=== PATIENT | male | born 1935 | race Caucasian/White ===

== ENCOUNTER → 2017-11-20 | Outpatient (CLI) | payer MEDICARE, OTHER ==
[~2017-11-20] MED LIST: IOHEXOL 350 MG/ML 100 ML (OMNIPAQUE 350) VIAL IV ONE; NS 100 ML (IVPB) BAG IV ONE
--- NOTE | 2017-11-20 10:10 | Diagnostic Imaging Report ---
PROCEDURE: CT chest with contrast only. TECHNIQUE: Multiple contiguous axial images were obtained through the chest after administration of intravenous contrast. INDICATION: Lung mass. 75 mL of Omnipaque 350 is administered intravenously. FINDINGS: There is patchy consolidation seen in the lower lobes and in the left upper lobe. In the medial aspect of the consolidation along the superior segment of the left lower lobe, a 2.5 cm underlying nodule is suggested. There is background severe emphysema and areas of scarring with bronchiectasis noted particularly prominent in the left lower lobe. There is small amount of fluid seen in the left major fissure. The thoracic aorta is normal in caliber. There is lymphadenopathy in the mediastinum with 1.6 cm enlarged precarinal node and infracarinal lymph node mass measuring 3.5 x 1.6 cm. There is a small subpulmonic effusion on the left and small pleural effusion on the right side. The heart size is normal. No pericardial effusion. There is ectasia of the descending aorta and in the upper abdominal aorta. IMPRESSION: 1. Pulmonary areas of consolidation mostly in the left lower lobe are probably related to pneumonia. The medial aspect of the consolidation demonstrates a 2.5 cm region concerning for a possibly neoplastic or infectious nodule. Followup study in 6 weeks is suggested to reevaluate after resolution of the pneumonia. 2. Prominent mediastinal lymphadenopathy. 3. Small pleural effusions. 4. Severe emphysema. Report was faxed to office of Sahara Conde by ana at 10:12 am. Dictated by: Dictated on workstation # [id number]
== END ==
LOC: RAD 08:10
PROVIDERS: ATTEND Family Medicine
DX: R91.8 Other nonspecific abnormal finding of lung field (principal); R59.0 Localized enlarged lymph nodes; J90 Pleural effusion, not elsewhere classified; J43.9 Emphysema, unspecified
CPT/HCPCS: 71260

== ENCOUNTER → 2017-12-25 | Outpatient (CLI) | payer MEDICARE, OTHER ==
[~2017-12-25] MED LIST changes: +CATHETER FLUSH 10 ML SYR IV PRN
--- NOTE | 2017-12-25 11:08 | Diagnostic Imaging Report ---
PROCEDURE: CT chest with contrast only. TECHNIQUE: Multiple contiguous axial images were obtained through the chest after administration of intravenous contrast. INDICATION: Followup lung mass. COMPARISON: Comparison is made with prior study from 11/20/2017. FINDINGS: No axillary lymphadenopathy is detected. Mediastinal nodes appear to be decreased in size when compared with prior. A right-sided precarinal node measures approximately 14 mm short axis compared with 16 mm. Lymph node on the left in the region of the AP window measures 11 mm short axis compared with 14 mm. Subcarinal fullness also appears to be improved. The kristal are unremarkable. No pericardial effusion is identified. There is a small left pleural effusion. Severe emphysematous changes are again noted in both lungs. Small amount of fluid in the major fissure on the left is seen. There has been significant improvement in the infiltrate in the left upper lobe and bilateral lower lobes. Mild infiltrate does remain, greatest in the left lower lobe. Previously noted rounded masslike density concerning for neoplasm is again noted in the medial aspect of left lower lobe and appears increased in size. This measures approximately 3.2 cm AP x 3.6 cm transverse compared with 2.5 cm AP x 1.9 cm transverse on prior. No other masses are seen. Upper abdomen does show some bilateral mild adrenal nodularity, similar to prior. IMPRESSION: Significant improvement in bilateral pulmonary infiltrates consistent with improving pneumonia when compared with study from 11/20/2017. However, there is an enlarging mass in the left lower lobe medially which does show some central low density and may be partially necrotic concerning for neoplasm. Small left effusion persists as well. Dictated by: Dictated on workstation # [id number]
== END ==
LOC: RAD 09:48
PROVIDERS: ATTEND Family Medicine
DX: J90 Pleural effusion, not elsewhere classified (principal); R91.8 Other nonspecific abnormal finding of lung field
CPT/HCPCS: 71260

== ENCOUNTER 2018-02-03 02:05 | Emergency (ER) | payer MEDICARE, OTHER ==
[~2018-02-03] VITALS: Ht 172.7 cm; Wt 44.0 kg
[2018-02-03] MEDS ORDERED: RT-ALBUTEROL SULF 2.5 MG/3 ML PRE-MIX VIAL INH STA (02:15)
[2018-02-03] MEDS ORDERED: RT-ALBUTEROL/IPRATROPIUM 3 ML (DUONEB) VIAL INH ONE (02:15)
[2018-02-03] MEDS ORDERED: morphine INJ 10 MG/ML 1ML (SYR OR VIAL) IVP STA (02:20)
[2018-02-03 02:24] LABS: BASOPHILS % (AUTO) 0 % (0-10); EOSINOPHILS % (AUTO) 0 % (0-10); HEMATOCRIT 37 % (40-54); HEMOGLOBIN 12.2 G/DL (13.3-17.7); LYMPHOCYTES # (AUTO) 1.4 X 10^3 (1.0-4.0); LYMPHOCYTES % (AUTO) 8 % (12-44); MEAN CORPUSCULAR HEMOGLOBIN 31 PG (25-34); MEAN CORPUSCULAR HGB CONC 33 G/DL (32-36); MEAN CORPUSCULAR VOLUME 93 FL (80-99); MEAN PLATELET VOLUME 8.5 FL (7.4-10.4); MONOCYTES # (AUTO) 1.2 X 10^3 (0.0-1.0); MONOCYTES % (AUTO) 7 % (0-12); NEUTROPHILS % (AUTO) 85 % (42-75); PLATELET COUNT 404 10^3/uL (130-400); RED BLOOD COUNT 3.99 10^6/uL (4.35-5.85); RED CELL DISTRIBUTION WIDTH 13.3 % (10.0-14.5); WHITE BLOOD COUNT 18.8 10^3/uL (4.3-11.0)
[2018-02-03] MEDS ORDERED: LORazepam INJ 2 MG/ML (ATIVAN) VIAL IVP ONE (02:30)
[2018-02-03 02:34] LABS: PROTHROMBIN TIME PATIENT 13.4 SEC (12.2-14.7)
[2018-02-03 02:35] LABS: BAND NEUTROPHILS 1 %; BASOPHILS % (MANUAL) 0 %; EOSINOPHILS % (MANUAL) 1 %; LYMPHOCYTES % (MANUAL) 9 %; MONOCYTES % (MANUAL) 2 %; NEUTROPHILS % (MANUAL) 87 %
[2018-02-03 02:36] LABS: RBC MORPH NORMAL
[2018-02-03 02:45] LABS: ALANINE AMINOTRANSFERASE 8 U/L (0-55); ALBUMIN 3.9 GM/DL (3.2-4.5); ALKALINE PHOSPHATASE 117 U/L (40-136); BILIRUBIN,TOTAL 0.6 MG/DL (0.1-1.0); BUN/CREATININE RATIO 13; CALCIUM 9.7 MG/DL (8.5-10.1); CARBON DIOXIDE 24 MMOL/L (21-32); CHLORIDE 100 MMOL/L (98-107); CREATININE SERUM 0.95 MG/DL (0.60-1.30); GFR ESTIMATED > 60; GLUCOSE 147 MG/DL (70-105); POTASSIUM 4.3 MMOL/L (3.6-5.0); SODIUM 133 MMOL/L (135-145); TOTAL PROTEIN 7.7 GM/DL (6.4-8.2)
--- NOTE | 2018-02-03 03:36 | ED Respiratory ---
General Chief Complaint: Respiratory Problems Stated Complaint: SOA Nursing Triage Note: PT TO ED 3 PER W/C FOR C/O SOB ONSET THIS EVENING. PT REPORTS HE IS ON HOSPICE FOR A "MASS IN HIS LUNG", WAS UNABLE TO REACH HIS DAUGHTERS WHO HAVE ALL HIS INFORMATION CONCERNING HOSPICE, CALLED HIS SISTER ET BROTHER TO BRING HIM TO ED FOR SOB. PT DENIES N/V/D, DOES C/O SOB ET SOME CHEST PAIN Source: patient, EMS Exam Limitations: no limitations History of Present Illness Date Seen by Provider: Feb 03, 2018 Time Seen by Provider: 02:05 Initial Comments Here from home with report of shortness of air this evening. Patient states that he started getting short of breath and didn't know what to do. Reports trying to call different people and could not get a hold of anybody but finally got a hold of the sister who brought him here. Later in the evaluation was found out that the patient does have home health that comes by once a week but this was then found out to be hospice. He apparently has a cancer of the left lung. He denies fever, chills, vomiting but does report shortness of breath. He does have some upper abdominal pain with the difficulty breathing. Timing/Duration: this morning, getting worse Severity: moderate Prior Episodes/Possible Cause: occasional episodes Modifying Factors: Worse With Activity, Improves With Oxygen, Improves With Rest Associated Symptoms: cough, No fever/chills, No nasal congestion, No nasal drainage, shortness of breath, wheezing Allergies and Home Medications Allergies Coded Allergies: No Known Allergies (Verified Allergy, Unknown, 04/15/07) Patient Home Medication List Home Medication List Reviewed: Yes Constitutional: see HPI, No chills, No fever, weakness EENTM: no symptoms reported Respiratory: see HPI, dyspnea on exertion, short of breath, wheezing Cardiovascular: no symptoms reported Gastrointestinal: see HPI, No nausea, No vomiting Genitourinary: no symptoms reported Musculoskeletal: no symptoms reported Psychiatric/Neurological: Anxiety All Other Systems Reviewed Negative Unless Noted: Yes Past Loohydq-Lpzqgt-Rocjgy Hx Patient Social History Alcohol Use: Denies Use Recreational Drug Use: No Smoking Status: Current Everyday Smoker Type Used: Cigarettes Recent Foreign Travel: No Contact w/Someone Who Travel: No Recent Infectious Disease Expo: No Recent Hopitalizations: Yes Surgeries History of Surgeries: Yes (BLADDER TUMOR) Respiratory History of Respiratory Disorde: No Cardiovascular History of Cardiac Disorders: No Neurological History of Neurological Disord: No Reproductive System Hx Reproductive Disorders: No Gastrointestinal History of Gastrointestinal Di: Yes Musculoskeletal History of Musculoskeletal Dis: No Endocrine History of Endocrine Disorders: No Cancer History of Cancer: Yes Cancer: Lung Psychosocial History of Psychiatric Problem: No Blood Transfusions History of Blood Disorders: No Reviewed Nursing Assessment Reviewed/Agree w Nursing PMH: Yes Family Medical History Significant Family History: No Pertinent Family Hx Physical Exam Vital Signs Vital Signs - First Documented Capillary Refill : Less Than 3 Seconds General Appearance: WD/WN, mild distress HEENT: PERRL/EOMI, pharynx normal Neck: full range of motion, supple Respiratory: lungs clear, normal breath sounds Cardiovascular: regular rate, rhythm, no murmur Gastrointestinal: non tender, soft Extremities: non-tender, normal inspection Neurologic/Psychiatric: alert, oriented x 3 Skin: normal color, warm/dry Focused Exam Evaluation Lactate Level Laboratory Tests 02/03/18 02:13: Lactic Acid Level 1.39 Lactic Acid Level Laboratory Tests Test 02/03/18 02:13 Lactic Acid Level 1.39 MMOL/L (0.50-2.00) Progress/Results/Core Measures Suspected Sepsis Recent Fever Within 48 Hours: No Infection Criteria Present: None New/Unexplained Altered Menta: No Sepsis Screen: No Definite Risk Sepsis Diagnosis: SIRS Temperature:95.9 Pulse: 96 Respiratory Rate: 28 Laboratory Tests 02/03/18 02:13: White Blood Count 18.8H Blood Pressure 200 /94 Mean: 129 Laboratory Tests 02/03/18 02:13: Lactic Acid Level 1.39 Laboratory Tests 02/03/18 02:13: Creatinine 0.95, INR Comment 1.0, Platelet Count 404H, Total Bilirubin 0.6 Results/Orders Lab Results Laboratory Tests Test 02/03/18 02:13 Range/Units White Blood Count 18.8 H 4.3-11.0 10^3/uL Red Blood Count 3.99 L 4.35-5.85 10^6/uL Hemoglobin 12.2 L 13.3-17.7 G/DL Hematocrit 37 L 40-54 % Mean Corpuscular Volume 93 80-99 FL Mean Corpuscular Hemoglobin 31 25-34 PG Mean Corpuscular Hemoglobin Concent 33 32-36 G/DL Red Cell Distribution Width 13.3 10.0-14.5 % Platelet Count 404 H 130-400 10^3/uL Mean Platelet Volume 8.5 7.4-10.4 FL Neutrophils (%) (Auto) 85 H 42-75 % Lymphocytes (%) (Auto) 8 L 12-44 % Monocytes (%) (Auto) 7 0-12 % Eosinophils (%) (Auto) 0 0-10 % Basophils (%) (Auto) 0 0-10 % Neutrophils # (Auto) 16.0 H 1.8-7.8 X 10^3 Lymphocytes # (Auto) 1.4 1.0-4.0 X 10^3 Monocytes # (Auto) 1.2 H 0.0-1.0 X 10^3 Eosinophils # (Auto) 0.0 0.0-0.3 10^3/uL Basophils # (Auto) 0.0 0.0-0.1 10^3/uL Neutrophils % (Manual) 87 % Lymphocytes % (Manual) 9 % Monocytes % (Manual) 2 % Eosinophils % (Manual) 1 % Basophils % (Manual) 0 % Band Neutrophils 1 % Blood Morphology Comment NORMAL Prothrombin Time 13.4 12.2-14.7 SEC INR Comment 1.0 0.8-1.4 Activated Partial Thromboplast Time 37 H 24-35 SEC Sodium Level 133 L 135-145 MMOL/L Potassium Level 4.3 3.6-5.0 MMOL/L Chloride Level 100 98-107 MMOL/L Carbon Dioxide Level 24 21-32 MMOL/L Anion Gap 9 5-14 MMOL/L Blood Urea Nitrogen 12 7-18 MG/DL Creatinine 0.95 0.60-1.30 MG/DL Estimat Glomerular Filtration Rate > 60 BUN/Creatinine Ratio 13 Glucose Level 147 H 70-105 MG/DL Lactic Acid Level 1.39 0.50-2.00 MMOL/L Calcium Level 9.7 8.5-10.1 MG/DL Total Bilirubin 0.6 0.1-1.0 MG/DL Aspartate Amino Transf (AST/SGOT) 17 5-34 U/L Alanine Aminotransferase (ALT/SGPT) 8 0-55 U/L Alkaline Phosphatase 117 40-136 U/L Total Protein 7.7 6.4-8.2 GM/DL Albumin 3.9 3.2-4.5 GM/DL My Orders Orders - CINDY PHELPS MD Albuterol Pre-Mix Nebs (Rt) (Proventil (02/03/18 02:15) Albuterol/Ipra Inhalation Soln (Duoneb I (02/03/18 02:15) Svn Sm Volume Nebulizer Rt-Rfs (02/03/18 02:15) Svn Sm Volume Nebulizer Rt-Rfs (02/03/18 02:15) Cbc With Automated Diff (02/03/18 02:15) Comprehensive Metabolic Panel (02/03/18 02:15) Lactic Acid Analyzer (02/03/18 02:15) Blood Culture (02/03/18 02:15) Sputum Culture (02/03/18 02:15) Ua Culture If Indicated (02/03/18 02:15) Protime With Inr (02/03/18 02:15) Partial Thromboplastin Time (02/03/18 02:15) Chest 1 View, Ap/Pa Only (02/03/18 02:15) O2 (02/03/18 02:15) Saline Lock/Iv-Start (02/03/18 02:15) Vital Signs Adult Sepsis Patie Q1H (02/03/18 02:15) Remove Rings In Anticipation O (02/03/18 02:15) Morphine Injection (Morphine Injection (02/03/18 02:20) Lorazepam Injection (Ativan Injection) (02/03/18 02:30) Manual Differential (02/03/18 02:13) Medications Given in ED Current Medications Medications Dose Ordered Sig/Sagar Route Start Time Stop Time Status Last Admin Dose Admin Albuterol/ Ipratropium 3 ml ONCE ONCE INH 02/03/18 02:15 02/03/18 02:17 DC 02/03/18 02:26 3 ML Lorazepam 0.5 mg ONCE ONCE IVP 02/03/18 02:30 02/03/18 02:31 DC 02/03/18 02:34 0.5 MG Vital Signs/I&O Vital Sign - Last 12Hours 02/03/18 02/03/18 02/03/18 02:05 02:05 02:26 Temp 95.9 Pulse 96 Resp 28 B/P (MAP) 200/94 (129) Pulse Ox 81 95 100 O2 Delivery Room Air Nasal Cannula OxyMask O2 Flow Rate 4.00 4.00 4.00 Capillary Refill : Less Than 3 Seconds Blood Pressure Mean: 129 Progress Note : Progress Note Seen and evaluated. IV, labs, chest x-ray, albuterol neb and DuoNeb ordered. Sepsis were Initiated but not completed as patient was found to be on hospice. Patient doing much better after breathing treatments. Morphine 2 mg IV and Ativan 0.5 mg IV ordered and given and this did help significantly as well. I did discuss the case with [facility] nurse magnetic resonance technologist. Family is also arriving and I have talked with them. 0330: I discussed the case with the 3 daughters, the sister and the hospice nurse Sara. Overall I believe he has pneumonia of the left long given his white count and findings on chest x-ray. We will initiate treatment with Levaquin. Patient doesn't want to stay in the hospital and family is okay with taking him home and he is doing much better currently. Discharged home with return precautions. Family and patient verbalize understanding instructions and agreement with plan. Diagnostic Imaging Diagonstic Imaging: Xray Plain Films/CT/US/NM/MRI: chest Comments Left lower lobe pneumonia and mass. Departure Impression Impression: Primary Impression: Aspiration pneumonia of left lower lobe Qualified Codes: J69.0 - Pneumonitis due to inhalation of food and vomit Additional Impression: Lung cancer Qualified Codes: C34.32 - Malignant neoplasm of lower lobe, left bronchus or lung Disposition: 01 HOME, SELF-CARE Condition: Stable Departure-Patient Inst. Decision time for Depature: 03:36 Referrals: NO,LOCAL PHYSICIAN (PCP/Family) Primary Care Physician Patient Instructions: Lung Cancer (DC), Pneumonia, Adult (DC) Add. Discharge Instructions: All discharge instructions reviewed with patient and/or family. Voiced understanding. Take medications as directed. Follow up with your DrZonia in a few days for recheck as needed. Return for worse pain, fever, vomiting, weakness, breathing problems or other concerns as needed. Continue home medications as directed. Scripts Levofloxacin (Levofloxacin) 500 Mg Tablet 500 MG PO DAILY, #7 TAB 0 Refills Prov: CINDY PHELPS MD 02/03/18 CINDY PHELPS MD Feb 03, 2018 03:35
[2018-02-03] MEDS ORDERED: LEVO500T80 PO (03:38)
[2018-02-03] MEDS ORDERED: LEVOFLOXACIN 500 MG TAB (LEVAQUIN) PO STA (03:39)
[2018-02-03 03:57] VITALS: BP 136/67
--- NOTE | 2018-02-03 07:12 | Diagnostic Imaging Report ---
INDICATION: Shortness of air. COMPARISON: 04/15/2007. FINDINGS: Left basilar heterogeneous opacities are present. No pleural effusion or pneumothorax. Heart is normal in size. Architectural distortion of the right upper lung zone appears chronic in nature. IMPRESSION: Left basilar heterogeneous consolidations favor pneumonia. Advise followup PA and lateral chest radiographs in 4 weeks after appropriate medical management to ensure resolution. Dictated by: Dictated on workstation # [id number]
== END 2018-02-03 03:57 | disposition home or self-care (01) ==
LOC: EDUNIT# 02:05 → ER 02:06
DX: J69.0 Pneumonitis due to inhalation of food and vomit (principal); C34.32 Malignant neoplasm of lower lobe, left bronchus or lung; F17.210 Nicotine dependence, cigarettes, uncomplicated
CPT/HCPCS: 36415; 71045; 80053; 83605; 85007; 85027; 85610; 85730; 94640